=== PATIENT | female | born 1940 | race Caucasian/White ===

== ENCOUNTER 2020-06-13 19:58 | Emergency (ER) | payer OTHER ==
[~2020-06-13] VITALS: Ht 162.6 cm; Wt 77.1 kg
[~2020-06-13 19:58] MED LIST: ASPIR 8181 MG PO; CYCLOBENZAPRINE5 MG PO; UNICOMPLEX M TA1 TA1 PO; ZOLOFT25 MG PO
[2020-06-14] MEDS ORDERED: HYDROCODON-ACE1 EAC7 PO (01:22)
[2020-06-14] MEDS ORDERED: MELOXICAM15 MG PO (01:22)
[2020-06-14 01:35] VITALS: BP 119/63
== END 2020-06-14 01:38 | disposition home or self-care (01) ==
LOC: M.ERS 19:58
DX: S52.592A Other fractures of lower end of left radius, initial encounter for closed fracture (principal); S52.612A Displaced fracture of left ulna styloid process, initial encounter for closed fracture; M25.562 Pain in left knee; Z90.49 Acquired absence of other specified parts of digestive tract; Z90.710 Acquired absence of both cervix and uterus; Z79.82 Long term (current) use of aspirin; Z79.899 Other long term (current) drug therapy; W01.198A Fall on same level from slipping, tripping and stumbling with subsequent striking against other object, initial encounter; Y93.89 Activity, other specified; Y92.89 Other specified places as the place of occurrence of the external cause; Y99.9 Unspecified external cause status

== ENCOUNTER 2020-06-19 00:57 | Emergency (ER) | payer OTHER ==
[~2020-06-19] VITALS: Ht 162.6 cm; Wt 77.6 kg
[~2020-06-19 00:57] MED LIST changes: +HYDROCODON-ACE1 EAC7 PO; +MELOXICAM15 MG PO
[2020-06-19 02:10] LABS: ABSOLUTE BASOPHILS 0.1 thou/uL (0.0-0.2); ABSOLUTE EOSINOPHILS 0.2 thou/uL (0.0-0.7); ABSOLUTE MONOCYTES 0.6 thou/uL (0.0-1.2); ABSOLUTE NEUTROPHILS 3.8 thou/uL (1.6-8.1); BASOPHILS 1.2 %; EOSINOPHILS 2.8 %; HEMATOCRIT 38.3 % (37.0-47.0); HEMOGLOBIN 12.2 gm/dL (12.0-15.0); MCH 28.3 pg (26.0-34.0); MCV 88.5 fL (80.0-100.0); MONOCYTES 9.6 %; MPV 7.2 fl. (7.2-11.1); NUCLEATED RBCS 0 /100WBC; PLATELET COUNT* 238 thou/uL (150-400); POLYS 56.4 %; RBC 4.32 mil/uL (4.20-5.00); RDW-CV 14.1 % (10.5-14.5); WBC 6.7 thou/uL (4.0-11.0)
[2020-06-19 02:23] LABS: URINE BILIRUBIN NEGATIVE (Negative); URINE BLOOD NEGATIVE (Negative); URINE CLARITY CLEAR; URINE COLOR YELLOW; URINE GLUCOSE-RANDOM NEGATIVE (Negative); URINE KETONES NEGATIVE (Negative); URINE LEUKOCYTES-REFLEX 1+ (Negative); URINE NITRITE-REFLEX NEGATIVE (Negative); URINE PROTEIN NEGATIVE (Negative); URINE UROBILINOGEN 0.2 E.U./dl (0.2-1.0)
[2020-06-19 02:24] LABS: CALCIUM 9.1 mg/dL (8.5-10.1); CREATININE 0.8 mg/dL (0.6-1.3)
[2020-06-19 02:26] LABS: INR 0.9; PROTIME 10.1 Seconds (9.20-11.50)
[2020-06-19 02:34] LABS: ALBUMIN 3.3 g/dL (3.4-5.0); MAGNESIUM 2.4 mg/dL (1.8-2.4); TOTAL BILIRUBIN 0.3 mg/dL (<0.1-1.0)
[2020-06-19 02:44] LABS: CASTS None Seen /LPF (None Seen); SQUAMOUS 4-10 Moderate /LPF (0-3); URINE RBC None Seen /HPF (0-2); URINE WBC-REFLEX 6-15 Few /HPF (0-5)
[2020-06-19 02:45] LABS: BACTERIA-REFLEX >30 Many /HPF (None Seen); CRYSTALS None Seen /LPF (None Seen)
[2020-06-19] MEDS ORDERED: KEFLEX500 M1 PO (05:24)
[2020-06-19 05:48] VITALS: BP 147/65
--- NOTE | 2020-06-19 10:22 | EKG ---
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: : 1940 Requested By: Shahrzad Fajardo Order Number: [id number] MD: Joesph Mulligan Measurements Intervals [place] Rate: 64 P: 13 [place]: 174 QRS: -4 QRSD: 104 T: 58 QT: 402 QTc: 415 Interpretive Statements Sinus rhythm Abnormal R-wave progression, early transition Compared to ECG 10/21/2016 16:26:25 Left ventricular hypertrophy no longer present Electronically Signed On 06-19-2020 10:22:13 [employer]IP[employer] by Joesph Mulligan [email or web address] <ELECTRONICALLY SIGNED> By: Joesph Mulligan MD, [facility] 06/19/20 1022 5 010 Joesph Mulligan MD, [facility] /EPI
== END 2020-06-19 05:49 | disposition still patient (30) ==
LOC: M.ERS 00:57
PROVIDERS: Emergency Medicine
DX: N39.0 Urinary tract infection, site not specified (principal); R53.1 Weakness; Z20.828 Contact with and (suspected) exposure to other viral communicable diseases; Z90.710 Acquired absence of both cervix and uterus; Z90.49 Acquired absence of other specified parts of digestive tract

== ENCOUNTER 2020-07-24 10:41 | Emergency (ER) | payer OTHER ==
[~2020-07-24] VITALS: Ht 162.6 cm; Wt 77.1 kg
[~2020-07-24 10:41] MED LIST changes: +KEFLEX500 M1 PO
[2020-07-24 11:14] LABS: ABSOLUTE BASOPHILS 0.1 thou/uL (0.0-0.2); ABSOLUTE EOSINOPHILS 0.1 thou/uL (0.0-0.7); ABSOLUTE LYMPHOCYTES 1.5 thou/uL (0.8-5.3); ABSOLUTE MONOCYTES 0.4 thou/uL (0.0-1.2); ABSOLUTE NEUTROPHILS 3.4 thou/uL (1.6-8.1); BASOPHILS 1.4 %; EOSINOPHILS 1.5 %; HEMATOCRIT 40.5 % (37.0-47.0); HEMOGLOBIN 13.3 gm/dL (12.0-15.0); LYMPHOCYTES 27.9 %; MCH 28.7 pg (26.0-34.0); MCHC 32.8 g/dL (28.0-37.0); MCV 87.6 fL (80.0-100.0); MONOCYTES 7.3 %; MPV 6.8 fl. (7.2-11.1); NUCLEATED RBCS 0 /100WBC; PLATELET COUNT* 294 thou/uL (150-400); POLYS 61.9 %; RBC 4.62 mil/uL (4.20-5.00); RDW-CV 14.2 % (10.5-14.5); WBC 5.4 thou/uL (4.0-11.0)
[2020-07-24 11:23] LABS: CALCIUM 9.1 mg/dL (8.5-10.1); CREATININE 0.9 mg/dL (0.6-1.3)
[2020-07-24 11:26] LABS: PROTIME 10.3 Seconds (9.20-11.50)
[2020-07-24 11:33] LABS: ALBUMIN 3.3 g/dL (3.4-5.0); TOTAL BILIRUBIN 0.2 mg/dL (<0.1-1.0); TOTAL PROTEIN 7.1 g/dL (6.4-8.2)
[2020-07-24 12:01] VITALS: BP 155/68
--- NOTE | 2020-07-25 15:07 | EKG ---
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: : 1940 Requested By: Jakob Bundy Order Number: [id number] MD: Anibal Pisano Measurements Intervals [place] Rate: 79 P: 14 [place]: 172 QRS: -19 QRSD: 96 T: 54 QT: 371 QTc: 426 Interpretive Statements Sinus rhythm Compared to ECG 06/19/2020 01:06:01 No significant changes noted Electronically Signed On 07-25-2020 15:07:09 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
== END 2020-07-24 12:01 | disposition home or self-care (01) ==
LOC: M.ERS 10:41
PROVIDERS: Family Medicine
DX: R53.1 Weakness (principal); Z20.828 Contact with and (suspected) exposure to other viral communicable diseases; Z90.49 Acquired absence of other specified parts of digestive tract; Z90.710 Acquired absence of both cervix and uterus

== ENCOUNTER 2020-09-08 13:46 | Emergency (ER) | payer OTHER ==
[~2020-09-08] VITALS: Ht 162.6 cm; Wt 72.1 kg
[2020-09-08 14:26] LABS: ABSOLUTE BASOPHILS 0.1 thou/uL (0.0-0.2); ABSOLUTE EOSINOPHILS 0.1 thou/uL (0.0-0.7); ABSOLUTE LYMPHOCYTES 2.4 thou/uL (0.8-5.3); ABSOLUTE MONOCYTES 0.8 thou/uL (0.0-1.2); ABSOLUTE NEUTROPHILS 3.7 thou/uL (1.6-8.1); BASOPHILS 0.9 %; EOSINOPHILS 1.3 %; HEMATOCRIT 37.8 % (37.0-47.0); HEMOGLOBIN 12.3 gm/dL (12.0-15.0); LYMPHOCYTES 34.5 %; MCH 28.3 pg (26.0-34.0); MCHC 32.7 g/dL (28.0-37.0); MCV 86.5 fL (80.0-100.0); NUCLEATED RBCS 0 /100WBC; PLATELET COUNT* 246 thou/uL (150-400); POLYS 52.3 %; RBC 4.37 mil/uL (4.20-5.00); RDW-CV 14.2 % (10.5-14.5)
[2020-09-08 14:39] LABS: CALCIUM 9.6 mg/dL (8.5-10.1); CREATININE 0.7 mg/dL (0.6-1.3); POTASSIUM 4.3 mmol/L (3.5-5.1)
[2020-09-08 14:44] LABS: ALBUMIN 3.2 g/dL (3.4-5.0); TOTAL BILIRUBIN 0.2 mg/dL (<0.1-1.0); TOTAL PROTEIN 6.6 g/dL (6.4-8.2)
[2020-09-08 14:46] LABS: SALICYLATE < 2.8 mg/dL (2.8-20.0)
[2020-09-08 15:04] LABS: ACETAMINOPHEN < 2 ug/mL (10-30)
[2020-09-08 15:05] LABS: ALCOHOL < 10 mg/dL (<10)
[2020-09-08] MEDS ORDERED: ARICEPT10 M1 PO (15:13)
[2020-09-08 15:53] LABS: URINE BILIRUBIN NEGATIVE (Negative); URINE BLOOD NEGATIVE (Negative); URINE CLARITY CLEAR; URINE COLOR YELLOW; URINE GLUCOSE-RANDOM NEGATIVE (Negative); URINE KETONES NEGATIVE (Negative); URINE LEUKOCYTES-REFLEX NEGATIVE (Negative); URINE NITRITE-REFLEX NEGATIVE (Negative); URINE PROTEIN NEGATIVE (Negative); URINE UROBILINOGEN 0.2 E.U./dl (0.2-1.0)
[2020-09-08 16:06] LABS: AMP/METHAMP Negative (Negative); BARBITURATES Negative (Negative); BENZODIAZEPINES Negative (Negative); COCAINE Negative (Negative); METHADONE Negative (Negative); OPIATES Negative (Negative); PCP Negative (Negative); THC Negative (Negative)
[2020-09-08 16:51] VITALS: BP 122/67
--- NOTE | 2020-09-08 17:09 | EKG ---
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14 : 1940 Requested By: Quinton Villa Order Number: [id number] MD: Anibal Pisano Measurements Intervals [place] Rate: 59 P: 15 [place]: 164 QRS: -11 QRSD: 90 T: 45 QT: 398 QTc: 395 Interpretive Statements Sinus rhythm LVH by voltage Compared to ECG 07/24/2020 11:08:28 Left ventricular hypertrophy now present Electronically Signed On 09-08-2020 17:08:58 UNIT COORDINATOR by Anibal Pisano [email or web address] <ELECTRONICALLY SIGNED> By: Anibal Pisano MD, FAC 09/08/20 1708 1403 1403 Anibal Pisano MD, [facility] /EPI
== END 2020-09-08 16:52 | disposition home or self-care (01) ==
LOC: M.ERS 13:46
PROVIDERS: Emergency Medicine Emergency Medical Services
DX: F41.0 Panic disorder [episodic paroxysmal anxiety] (principal); M54.2 Cervicalgia; Z90.711 Acquired absence of uterus with remaining cervical stump; Z90.49 Acquired absence of other specified parts of digestive tract; Z79.899 Other long term (current) drug therapy